=== PATIENT | female | born 1995 | race Hispanic/Latino ===

== ENCOUNTER 2021-10-11 02:07 | Observation (INO) | payer OTHER ==
--- OUTSIDE RECORDS SUMMARY | 2021-10-11 02:10 | XMS REPORT | Continuity of Care Document ---
:1995 Author Organization [facility] t Address [address] [place] [address] Dr[address] Roblero [address] [place] [id number] Care Team Providers Name Role Phone Lucille Wharton Primary Care Physician SUE C Attending Clinician Unavailable Visit, Nurse Attending Clinician Unavailable Julia KELLEY R Attending Clinician Lucille KRISHNAMURTHY Attending Clinician Unavailable Darrian Jarrell Attending Clinician Sue GUTIERREZ C Attending Clinician Payers Payer Name Policy Type Policy Number Effective Date Expiration Date Yvonne HYATT [id number] 2015 HEALTH 00:00:00 Problems Condition Condition Condition Status Onset Resolution Last Treating Co mments Source Name Details Category Date Date Treatment Clinician Date Other Other Disease Active Univers general general 9-17 ity of counseling [place] advice 00 N[place] dical for [facility] contracept contracept jose ramon jose ramon management management Obesity Obesity Disease Active Univers (BMI (BMI 7-26 ity of 30-39.9) 30-39.9) 00:00: [address] Allergies, Adverse Reactions, Alerts Allergy Allergy Status Severity Reaction(s) Onset Inactive Treating Comm ents Source Name Type Date Date Clinician NO KNOWN Drug Active Univers ALLERGIE Class ity of [facility] Social History Social Habit Start Date Stop Date Quantity Comments Source Exposure to 2021-08-19 2021-08-29 Not sure University SARS-CoV-2 00:00:00 10:48:00 [place] [facility]event[facility] Alcohol intake 2021-03-14 2021-03-14 Current drinker Unive rsity of 00:00:00 00:00:00 of alcohol [place] [facility] (finding[facility] Tobacco use and 2020-02-19 2020-02-19 Never used Universit y of exposure 00:00:00 00:00:00 [place] [facility] History SDOH 2020-02-19 2020-02-19 2 University o f Alcohol Frequency 00:00:00 00:00:00 [place] [facility] History SDOH 2020-02-19 2020-02-19 99 University o f Alcohol Std 00:00:00 00:00:00 [place] [facility] Drinks [facility] History SDOH 2020-02-19 2020-02-19 99 University o f Alcohol Binge 00:00:00 00:00:00 [place] [facility] Alcohol Comment 2020-02-19 2020-02-19 stopped for Universi ty of 00:00:00 00:00:00 , [facility] social drinker Branch Sex Ass[birth year] Universit y of 00:00:00 00:00:00 [facility] Branch Smoking Status Start Date Stop Date Source Never smoker [facility] Medications Ordered Filled Start Stop Current Ordering Indication Dosage Frequency Signature Comments Components Source Medication Medication Date Date Medication? Clinician (SIG) Name Name medroxyPROG 2020-03- No [id number] 150mg Univers ESTERone 05-15 ity of (DEPO-PROVE 20:45: 19:44 [place] [facility]) 00 :00 Medical injection Branch 150 mg medroxyPROG 2020-03- No [id number] 150mg 150 mg, Univers ESTERone 05-15 Intramuscu ity of (DEPO-PROVE 20:45: 19:44 [place], [place] [facility]) 00 :00 [id number], Medical injection 3 doses, Branch 150 mg First dose on Sat03/14/21 at 1445, Last dose on Sat08/29/21 at 1445, Routine medroxyPROG 2020-03- No [id number] 150mg Univers ESTERone 05-15 ity of (DEPO-PROVE 20:45: 19:44 [place] [facility]) 00 :00 Medical injection Branch 150 mg medroxyPROG 2020-03- No [id number] 150mg 150 mg, Univers ESTERone -11-21 Intramuscu ity of (DEPO-PROVE 20:45: 19:44 [facility], [place] [facility]) 00 :00 [id number], Medical injection 3 doses, Branch 150 mg First dose on Sat03/14/21 at 1445, Last dose on Sat08/29/21 at 1445, Routine medroxyPROG 2020-03- No [id number] 150mg Univers ESTERone 05-15 ity of (DEPO-PROVE 20:45: 19:44 [place] [facility]) 00 :00 Medical injection Branch 150 mg medroxyPROG 2020-03- No [id number] 150mg 150 mg, Univers ESTERone 05-15 Intramuscu ity of (DEPO-PROVE 20:45: 19:44 [facility], [place] [facility]) 00 :00 [id number], Medical injection 3 doses, Branch 150 mg First dose on Sat03/14/21 at 1445, Last dose on Sat08/29/21 at 1445, Routine medroxyPROG 2020-03- No [id number] 150mg 150 mg, Univers ESTERone 05-15- Intramuscu ity of (DEPO-PROVE 20:45: 15:51 [facility], [facility]) 00 :00 [id number], Medical injection 3 doses, Branch 150 mg First dose on Sat03/14/21 at 1445, Last dose on Sat08/29/21 at 1445, Routine No known 2020-03 No Univers medications 05-15 ity of 14:41: [place] [facility] norethindro 2020- No [id number] 1{tbl} Take 1 Univers ne 0.35 mg 9-17 12-28 tablet by ity of tablet 00:00: 00:00 mouth [place] 00 :00 [facility] norethindro 2020- No [id number] 1{tbl} Take 1 Univers ne 0.35 mg 9-17 12-28 tablet by ity of tablet 00:00: 00:00 mouth [place] 00 :[facility]- No [id number] 1{tbl} Take 1 Univers vitamin 7-28 12-28 tablet by ity of w/FA tablet 00:00[place] daily. [facility] norethindro 2020- No [id number] .35mg Take 1 Univers ne 0.35 mg 7-28 12-28 tablet by ity of tablet 00:00: 00:00 mouth [place] 00 :00 daily. Medical Branch 2020- No [id number] 1{tbl} Take 1 Univers vitamin 7-28 12-28 tablet by ity of w/FA tablet 00:00[place] daily. [facility] norethindro 2020- No [id number] .35mg Take 1 Univers ne 0.35 mg 7-28 12-28 tablet by ity of tablet 00:00: 00:00 mouth [place] 00 :[facility] Immunizations Ordered Filled Immunization Date Status Comments [facility] e Immunization Name Name Varicella 2020-10-12 Completed University of (varivax)(chicken 00:00:00 [place] [facility] pox) [facility] MMR 2020-10-12 Completed University of 00:00:00 [facility] Varicella 2020-10-12 Completed University of (varivax)(chicken 00:00:00 [place] [facility] pox) [facility] MMR 2020-10-12 Completed University of 00:00:00 [facility] Varicella 2020-10-12 Completed University of (varivax)(chicken 00:00:00 [place] [facility] pox) [facility] 2020-10-12 Completed University of 00:00:00 [facility] Varicella 2020-10-12 Completed University of (varivax)(chicken 00:00:00 [place] [facility] pox) [facility] 2020-10-12 Completed University of 00:00:00 [facility] TDAP 2020-07-18 Completed University of 00:00:00 [facility] TDAP 2020-07-18 Completed University of 00:00:00 [facility] TDAP 2020-07-18 Completed University of 00:00:00 [facility] TDAP 2020-07-18 Completed University of 00:00:00 [facility] Vital Signs Vital Name Observation Time Observation Value Comments Source Systolic blood 2021-08-29 15:47:00 114 mm[Hg] Univer sity of pressure [place] [facility] Diastolic blood 2021-08-29 15:47:00 71 mm[Hg] Unive rsity of pressure [place] [facility] Heart rate 2021-08-29 15:47:00 80 /min Universi ty of [place] [facility] Body temperature 2021-08-29 15:47:00 36.72 Nova Univ ersity of [place] [facility] Respiratory rate 2021-08-29 15:47:00 18 /min Univ ersity of [place] [facility] Body height 2021-08-29 15:47:00 157.5 cm Universi ty [facility] [place] [facility] Body weight 2021-08-29 15:47:00 95.8 kg [facility]i ty [facility] [place] [facility] BMI 2021-08-29 15:47:00 38.63 kg/m2 Universi ty of [place] [facility] Systolic blood 2021-06-06 15:57:00 130 mm[Hg] Univer sity of pressure [place] [facility] Diastolic blood 2021-06-06 15:57:00 77 mm[Hg] Unive rsity of pressure [place] [facility] Heart rate 2021-06-06 15:57:00 92 /min Universi ty of [place] [facility] Body temperature 2021-06-06 15:57:00 36.56 [facility] Univ ersity of [place] [facility] Respiratory rate 2021-06-06 15:57:00 18 /min Univ ersity of [place] [facility] Body height 2021-06-06 15:57:00 157.5 cm Universi ty [facility] [place] [facility] Body weight 2021-06-06 15:57:00 99.338 kg [facility]i ty [facility] [place] [facility] BMI 2021-06-06 15:57:00 40.06 kg/m2 [facility]i ty [facility] [place] [facility] Systolic blood 2021-03-14 20:13:00 134 mm[Hg] Univer sity of pressure [place] [facility] Diastolic blood 2021-03-14 20:13:00 84 mm[Hg] Unive rsity of pressure [place] [facility] Heart rate 2021-03-14 20:13:00 92 /min Universi ty [facility] [place] [facility] Body temperature 2021-03-14 20:13:00 36.33 [facility] ersity of [place] [facility] Respiratory rate 2021-03-14 20:13:00 16 /min Univ ersity of [place] [facility] Body height 2021-03-14 20:13:00 157.5 cm General acute hospital Body weight 2021-03-14 20:13:00 100.336 kg [facility] acute hospital BMI 2021-03-14 20:13:00 40.46 kg/m2 General acute hospital Procedures This patient has no known procedures. Encounters Start End Encounter Admission Attending Care Care Encounter Source Date/Time Date/Time Type Type Clinicians Facility Department ID 2021-12-04 2021-12-04 Outpatient R SUE [facility] [id number] Univers 09:30:00 09:30:00 CYNTHIA [id number] itberyl o [facility] [place] 2021-12-04 2021-12-04 Outpatient R SUE [facility] [id number] Univers 09:30:00 09:30:00 CYNTHIA kemp o [facility] [place] 2021-08-29 2021-08-29 Nurse Visit, Pedrito Nurse [facility] [id number] Univers 10:30:00 11:00:24 Visit Thea Krishnamurthy RELATIONSHIP EXECUT[id number] Nikhil as MATERNAL [id number] Med ical & CHILD [address] [place] [address] 2021-08-29 2021-08-29 Outpatient R [facility] [id number] Univers 10:30:00 10:30:00 [id number] ity [facility] 2021-08-29 2021-08-29 Outpatient R JULIA [facility] [id number] Univers 10:30:00 10:30:00 THEA kemp o [facility] [place] 2021-06-06 2021-06-06 Outpatient R JULIA [facility] [id number] Univers 10:30:00 11:07:10 THEA kemp o [facility] [place] 2021-06-06 2021-06-06 Nurse Visit, Pedrito Nurse [facility] [id number] Univers 10:30:00 11:07:10 Visit Thea Krishnamurthy RELATIONSHIP EXECUTIVE [id number] ity [facility] [id number] Nikhil as MATERNAL [id number] [facility] ical & CHILD [address] [place] [address] 2021-03-14 2021-03-14 Office Maribell Vasquez [facility] [id number] [facility] 14:00:00 14:47:53 Visit Cynthia Rogers RELATIONSHIP EXECUTIVE [id number] ity of [facility] [id number] Nikhil as MATERNAL [id number] [facility] & CHILD [address] [place] [address] Results This patient has no known results.
[2021-10-11] MEDS ORDERED: ONDANSETRON 4 MG/2 ML VIAL ONE ×2 (02:56→11:25)
[2021-10-11] MEDS ORDERED: NA CHLORIDE 0.9% 1,000 ML ONE ×2 (02:57→05:18)
[2021-10-11] MEDS ORDERED: PROMETHAZINE INJ 25 MG/ML AMP ONE (03:57)
[2021-10-11] MEDS ORDERED: MORPHINE 4 MG/ML SYR ONE ×2 (04:24→10:15)
[2021-10-11 04:36] LABS: Absolute Lymphocytes (CBC) 4.2 K/uL (0.7-4.9); Hematocrit 40.9 % (36.0-45.0); Lymphocytes % 32.2 % (15.3-44.8); MPV 9.5 fL (7.6-11.3); RBC Red Blood Cell Count 5.59 M/uL (3.86-4.86)
[2021-10-11 04:45] LABS: Albumin 3.9 g/dL (3.4-5.0); Bilirubin Total 0.2 mg/dL (0.2-1.0); Potassium 3.6 mmol/L (3.5-5.1); Protein, Total 8.2 g/dL (6.4-8.2)
[2021-10-11 06:14] LABS: Urine Blood Negative (Negative); Urine Glucose Negative (Negative); Urine Protein Negative (Negative); Urine Specific Gravity >=1.030 (1.005-1.030); Urine pH 5.5 (5.0-7.0)
--- NOTE | 2021-10-11 07:36 | RAD REPORT ---
EXAM DESCRIPTION: US - Abdomen Exam Limited - 10/11/2021 7:26 am CLINICAL HISTORY: ABD PAIN COMPARISON: Abdomen Pelvis W Contrast dated 10/11/2021 FINDINGS: Gallbladder is distended but not dilated. There are numerous variably sized gallstones lay ering along the dependent portion of the gallbladder. Gallbladder wall is thickened and there is a sm all amount of pericholecystic fluid identifiable. Common bile duct is normal range at 5 mm. No duct stone was identifiable. IMPRESSION: Gallbladder findings are consistent with acute cholecystitis. No biliary tree dilatation is seen and no duct stone was identifiable.
[2021-10-11] MEDS ORDERED: PIPERACIL/TAZO 3.375 GM VIAL IV ONE (08:24)
[2021-10-11] MEDS ORDERED: NA CHLORIDE 0.9% 50 ML ONE (08:24)
--- NOTE | 2021-10-11 08:29 | ER ---
Nurse's Notes [facility] Name: Anita Rae Age: 26 yrs Sex: Female : 1995 Arrival Date: 10/11/2021 Time: 02:10 Bed 18 Private MD: Diagnosis: Calculus of gallbladder without cholecystitis;Acute cholecystitis Presentation: 10/11 02:39 Chief complaint: Patient states: My stomach hurts really bad and its making my back kd3 hurt and i cant stop throwing up. It started tonight around 11. This isn't the first time it has happened but usually it goes away. Today it didn't go away. Coronavirus screen: Vaccine status: Patient reports being unvaccinated. Ebola Screen: No symptoms or risks identified at this time. Initial Sepsis Screen: Does the patient meet any 2 criteria? No. Patient's initial sepsis screen is negative. Does the patient have a suspected source of infection? No. Patient's initial sepsis screen is negative. Risk Assessment: Do you want to hurt yourself or someone else? Patient reports no desire to harm self or others. Onset of symptoms was October 11, 2021. 02:39 Method Of Arrival: Ambulatory kd3 02:39 Acuity: BASIM 3 kd3 Triage Assessment: 02:43 General: Appears uncomfortable, ill, Behavior is cooperative. Pain: Complains of pain kd3 in epigastric area. Neuro: Level of Consciousness is awake, alert, obeys commands, Oriented to person, place, time, situation. GI: Pt is actively vomiting clear fluid, undigested food. 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 - Social history:: Smoking status: unknown. Screenin:44 Abuse screen: Denies threats or abuse. Denies injuries from another. Nutritional kd3 screening: No deficits noted. Tuberculosis screening: No symptoms or risk factors identified. Fall Risk None identified. Assessment: 02:52 GI: Bowel sounds present X 4 quads. Abd is soft. kd3 02:53 Reassessment: See Triage. kd3 Vital Signs: 02:39 Pulse 64; Resp 21; Pulse Ox 100% ; Weight 93.89 kg; Height 5 ft. 2 in. (157.48 cm); kd3 Pain 10/10; 02:44 BP 140 / 83; kd3 02:46 Temp 97.5(A); kd3 04:20 BP 136 / 72; Pulse 72; Resp 20; Pulse Ox 100% on R/A; bh1 05:30 BP 124 / 68; Pulse 88; Resp 20; Pulse Ox 100% on R/A; bh1 07:13 BP 126 / 72; Pulse 88; Resp 20; Pulse Ox 100% on R/A; bh1 09:15 BP 125 / 89; Pulse 59; Resp 16 S; Pulse Ox 95% on R/A; Pain 9/10; jg9 02:39 Body Mass Index 37.86 (93.89 kg, 157.48 cm) kd3 ED Course: 02:10 Patient arrived in ED. bp1 02:43 Triage completed. kd3 02:43 Arm band placed on left wrist. kd3 02:52 Gabbie Marquez, IAN is Primary Nurse. kd3 02:52 Patient has correct armband on for positive identification. kd3 02:52 No provider procedures requiring assistance completed. kd3 03:05 Initial lab(s) drawn, by me, sent to lab. Missed attempt(s): 22 gauge in left wm antecubital area. Bleeding controlled, band aid applied, catheter tip intact. 03:07 Inserted saline lock: 20 gauge in right antecubital area, using aseptic technique. kd3 Blood collected. Missed attempt(s): 22 gauge in left antecubital area. 03:52 Michael Santiago MD is Attending Physician. kdr 03:54 Patient taken to an exam room. bh1 04:21 No apparent distress. Appears to be sleeping. Awaiting CT Scan. bh1 05:29 No apparent distress. Resting quietly. Awaiting CT Scan. bh1 06:08 Test, Serum Sent. bh1 06:[address] bh1 06:22 Patient taken to an exam room. bh1 06:27 CT Abd/Pelvis - IV Contrast Only In Process Unspecified. EDMS 07:28 Abdomen Limited US In Process Unspecified. EDMS 07:43 Attending Physician role handed off by Michael Santiago MD denisse 07:43 Lenard Headley MD is Attending Physician. denisse 08:25 Thomas Paniagua MD is Hospitalizing Provider. denisse 09:40 Patient admitted, IV remains in place. jg9 Administered Medications: 03:50 Drug: Zofran (Ondansetron) 4 mg Route: IVP; Site: right antecubital; kd3 03:54 Follow up: Response: No adverse reaction 1 03:50 Drug: NS 0.9% 1000 ml Route: IV; Rate: 1 bolus; Site: right antecubital; kd3 04:14 Follow up: Response: No adverse reaction; IV Status: Completed infusion; IV Intake: bh1 1000ml 03:55 Drug: Phenergan (promethazine) 12.5 mg Route: IVP; Site: left antecubital; kd3 04:13 Follow up: Response: No adverse reaction 1 04:19 Drug: morphine 4 mg Route: IVP; Infused Over: 4 mins; Site: right antecubital; bh1 04:19 Follow up: Response: No adverse reaction 1 05:15 Drug: NS 0.9% 1000 ml Route: IV; Rate: 1 bolus; Site: right antecubital; bh1 06:13 Follow up: IV Status: Completed infusion; IV Intake: 1000ml bh1 09:00 Follow up: IV Status: Completed infusion; IV Intake: 1000ml jg9 08:30 Drug: Zosyn (piperacillin-tazobactam) 3.375 grams Route: IVPB; Infused Over: 60 mins; iw Site: right antecubital; 09:30 Follow up: IV Status: Completed infusion; IV Intake: 100ml jg9 Medication: 02:52 VIS not applicable for this client. kd3 Intake: 04:14 IV: 1000ml; Total: 1000ml. bh1 06:13 IV: 1000ml; Total: 2000ml. bh1 09:00 IV: 1000ml; Total: 3000ml. jg9 09:30 IV: 100ml; Total: 3100ml. jg9 Outcome: 08:28 Decision to Hospitalize by Provider. denisse 09:39 Admitted to OR accompanied by nurse, via wheelchair. jg9 09:39 Condition: stable 09:40 Patient left the ED. jg9 Signatures: Dispatcher [employer] EDLenard Morrison MD MD cha Rittger, Kevin, MD MD kdr Williams, Irene, RN RN iw Lavinia Braxton Wendy wm Doucette, Kyli, RN RN kd3 Alice Yan RN RN jg9 Kellie Caruso RN RN bh1
--- NOTE | 2021-10-11 08:29 | EDPHYS ---
[facility] Name: Anita Rae Age: 26 yrs Sex: Female : 1995 Arrival Date: 10/11/2021 Time: 02:10 Bed 18 Private MD: ED Physician Lenard Headley HPI: 10/11 07:09 This 26 yrs old Female presents to ER via Ambulatory with complaints of kdr Abdominal Pain, Back Pain, Vomiting. 07:10 The patient presents with abdominal pain in the upper abdomen. Onset: The kdr symptoms/episode began/occurred last night. The symptoms do not radiate. Associated signs and symptoms: Pertinent positives: nausea and vomiting. The symptoms are described as achy, constant, crampy. Modifying factors: The symptoms are alleviated by nothing, the symptoms are aggravated by food, movement, touching the area, vomiting. Severity of pain: At its worst the pain was mild moderate just prior to arrival. The patient has experienced similar episodes in the past, multiple times, but today's symptoms are worse. Patient presents to the ED this morning complaining of abdominal pain and vomiting. She states that she has had this problem off and on for some weeks if not a month or more. Today however the pain was more severe and she could not stop vomiting. The vomiting started about 11 PM last evening. She continues to have mild to moderate nausea in the ED at this time. She appears mildly to moderately uncomfortable. 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 - Social history:: Smoking status: unknown. ROS: 07:10 Constitutional: Negative for fever, chills, and weight loss, Eyes: Negative for injury, kdr pain, redness, and discharge, Neck: Negative for injury, pain, and swelling. 07:10 Cardiovascular: Negative for chest pain, palpitations, and edema, Respiratory: Negative for shortness of breath, cough, wheezing, and pleuritic chest pain, Back: Negative for injury and pain, : Negative for injury, bleeding, discharge, and swelling, MS/Extremity: Negative for injury and deformity, Skin: Negative for injury, rash, and discoloration, Neuro: Negative for headache, weakness, numbness, tingling, and seizure activity. Psych: Negative for depression, anxiety, suicide ideation, homicidal ideation, and hallucinations, Allergy/Immunology: Negative for hives, rash, and allergies, Endocrine: Negative for neck swelling, polydipsia, polyuria, polyphagia, and marked weight changes, Hematologic/Lymphatic: Negative for swollen nodes, abnormal bleeding, and unusual bruising. 07:10 Constitutional: Positive for malaise, poor PO intake. 07:10 Abdomen/GI: Positive for abdominal pain, nausea and vomiting, nausea, vomiting, and diarrhea, constipation, abdominal cramps, of the epigastric area, right upper quadrant and left upper quadrant, Negative for black/tarry stool, rectal pain, rectal bleeding, bowel incontinence, flatulence. Exam: 07:10 Constitutional: This is a well developed, well nourished patient who is awake, alert, kdr and in no moderate distress. Head/Face: Normocephalic, atraumatic. Eyes: Pupils equal round and reactive to light, extra-ocular motions intact. Lids and lashes normal. Conjunctiva and sclera are non-icteric and not injected. Cornea within normal limits. Periorbital areas with no swelling, redness, or edema. Neck: Trachea midline, no thyromegaly or masses palpated, and no cervical lymphadenopathy. Supple, full range of motion without nuchal rigidity, or vertebral point tenderness. No Meningismus. Chest/axilla: Normal chest wall appearance and motion. Nontender with no deformity. No lesions are appreciated. Cardiovascular: Regular rate and rhythm with a normal S1 and S2. No gallops, murmurs, or rubs. Normal PMI, no JVD. No pulse deficits. Respiratory: Lungs have equal breath sounds bilaterally, clear to auscultation and percussion. No rales, rhonchi or wheezes noted. No increased work of breathing, no retractions or nasal flaring. Back: No spinal tenderness. No costovertebral tenderness. Full range of motion. Skin: Warm, dry with normal turgor. Normal color with no rashes, no lesions, and no evidence of cellulitis. MS/ Extremity: Pulses equal, no cyanosis. Neurovascular intact. Full, normal range of motion. Neuro: Awake and alert, GCS 15, oriented to person, place, time, and situation. Cranial nerves II-XII grossly intact. Motor strength 5/5 in all extremities. Sensory grossly intact. Cerebellar exam normal. Normal gait. Psych: Awake, alert, with orientation to person, place and time. Behavior, mood, and affect are within normal limits. 07:10 Abdomen/GI: Inspection: obese Bowel sounds: active, diminished, in all quadrants, Palpation: soft, mild abdominal tenderness, in the epigastric area, right upper quadrant and left upper quadrant, rebound tenderness, is not appreciated. Vital Signs: 02:39 Pulse 64; Resp 21; Pulse Ox 100% ; Weight 93.89 kg; Height 5 ft. 2 in. (157.48 cm); kd3 Pain 10/10; 02:44 BP 140 / 83; kd3 02:46 Temp 97.5(A); kd3 04:20 BP 136 / 72; Pulse 72; Resp 20; Pulse Ox 100% on R/A; bh1 05:30 BP 124 / 68; Pulse 88; Resp 20; Pulse Ox 100% on R/A; bh1 07:13 BP 126 / 72; Pulse 88; Resp 20; Pulse Ox 100% on R/A; bh1 09:15 BP 125 / 89; Pulse 59; Resp 16 S; Pulse Ox 95% on R/A; Pain 9/10; jg9 02:39 Body Mass Index 37.86 (93.89 kg, 157.48 cm) kd3 MDM: 07:10 Data reviewed: vital signs, nurses notes, lab test result(s), radiologic studies. kdr Counseling: I had a detailed discussion with the patient and/or guardian regarding: the historical points, exam findings, and any diagnostic results supporting the discharge/admit diagnosis, lab results, radiology results. 07:43 Patient medically screened. denisse 10/11 02:42 Order name: CBC with Diff bb 10/11 02:42 Order name: CMP 10/11 02:42 Order name: Lipase 10/11 05:09 Order name: Test, Serum 10/11 05:57 Order name: CBC with Automated Diff; Complete Time: 07:05 EDCA 10/11 05:57 Order name: Comprehensive Metabolic Panel EDCA 10/11 05:57 Order name: Lipase EDCA 10/11 05:57 Order name: Test Serum, [place]; Complete Time: 07:05 EDMS 10/11 06:15 Order name: Urine Dipstick-Ancillary; Complete Time: 07:05 EDMS 10/11 08:46 Order name: Basic Metabolic Panel EDCA 10/11 08:46 Order name: Basic Metabolic Panel EDCA 10/11 08:46 Order name: CBC with Automated Diff EDMS 10/11 08:46 Order name: CBC with Automated Diff EDMS 10/11 02:42 Order name: IV Saline Lock; Complete Time: 03:06 bb 10/11 02:42 Order name: Labs collected and sent; Complete Time: 03:06 bb 10/11 04:14 Order name: CT Abd/Pelvis - IV Contrast Only kdr 10/11 07:07 Order name: Abdomen Limited US; Complete Time: 07:55 kdr 10/11 08:46 Order name: NPO EDCA 10/11 08:46 Order name: Lipase EDCA 10/11 08:46 Order name: Lipase EDCA 10/11 08:46 Order name: Liver (Hepatic) Function EDCA 10/11 08:46 Order name: Liver (Hepatic) Function EDCA 10/11 08:49 Order name: SARS RAPID bd 10/11 02:42 Order name: Urine Dipstick-Ancillary (obtain specimen); Complete Time: 06:13 bb 10/11 02:42 Order name: Urine Test (obtain specimen); Complete Time: 06:13 bb Administered Medications: 03:50 Drug: Zofran (Ondansetron) 4 mg Route: IVP; Site: right antecubital; kd3 03:54 Follow up: Response: No adverse reaction 1 03:50 Drug: NS 0.9% 1000 ml Route: IV; Rate: 1 bolus; Site: right antecubital; kd3 04:14 Follow up: Response: No adverse reaction; IV Status: Completed infusion; IV Intake: bh1 1000ml 03:55 Drug: Phenergan (promethazine) 12.5 mg Route: IVP; Site: left antecubital; kd3 04:13 Follow up: Response: No adverse reaction 1 04:19 Drug: morphine 4 mg Route: IVP; Infused Over: 4 mins; Site: right antecubital; bh1 04:19 Follow up: Response: No adverse reaction 1 05:15 Drug: NS 0.9% 1000 ml Route: IV; Rate: 1 bolus; Site: right antecubital; 1 06:13 Follow up: IV Status: Completed infusion; IV Intake: 1000ml bh1 09:00 Follow up: IV Status: Completed infusion; IV Intake: 1000ml jg9 08:30 Drug: Zosyn (piperacillin-tazobactam) 3.375 grams Route: IVPB; Infused Over: 60 mins; iw Site: right antecubital; 09:30 Follow up: IV Status: Completed infusion; IV Intake: 100ml jg9 Disposition Summary: 10/11/21 08:28 Hospitalization Ordered Hospitalization Status: Observation denisse Provider: Thomas Paniagua cha Location: Telemetry/MedSurg (observation) denisse Condition: Stable denisse Problem: new denisse Symptoms: have improved denisse Bed/Room Type: Standard [facility] Room Assignment: denisse Diagnosis - Calculus of gallbladder without cholecystitis denisse - Acute cholecystitis denisse Forms: - Medication Reconciliation Form denisse - SBAR form denisse Signatures: Dispatcher [employer] EDLenard Morrison MD MD cha Rittger, Kevin, MD MD kdr Ballard, Brenda RN RN Bety Irwin RN RN iw Doucette, Kyli, RN RN kd3 Kellie Caruso RN RN bhAlice Bergeron RN jg9
[2021-10-11] MEDS ORDERED: MORPHINE 4 MG/ML SYR IV PRN (08:40)
[2021-10-11] MEDS ORDERED: ONDANSETRON 4 MG/2 ML VIAL IV PRN (08:40)
[2021-10-11] MEDS ORDERED: FAMOTIDINE 20 MG/2 ML VIAL IV SCH (09:00)
[2021-10-11] MEDS ORDERED: PIPER TAZO 3.375 GM in NA CHLORIDE 0.9% 100 ML IV SCH (09:00)
[2021-10-11] MEDS ORDERED: ACETAMINOPHEN 325 MG TABLET PO PRN (09:30)
[2021-10-11] MEDS ORDERED: Ringers Lactate 1,000 ML IV ONE ×2 (09:51→11:32)
[2021-10-11] MEDS ORDERED: FENTANYL CITR 100 MCG/2 ML ONE (10:02)
[2021-10-11] MEDS ORDERED: MIDAZOLAM HCL 2 MG/2 ML INJ ONE (10:02)
[2021-10-11] MEDS ORDERED: ROCURONIUM 50 MG/5 ML VIAL IV ONE (10:02)
[2021-10-11] MEDS ORDERED: propofoL 200 MG/20 ML VIAL IV ONE (10:02)
[2021-10-11] MEDS ORDERED: LIDOCAINE 1% MPF 5 ML VIAL ONE (10:02)
[2021-10-11] MEDS ORDERED: ACETAMINOPHEN 500 MG TAB ONE (10:06)
[2021-10-11] MEDS ORDERED: CELECOXIB 100 MG CAPSULE ONE (10:06)
--- NOTE | 2021-10-11 10:53 | RAD REPORT ---
EXAM DESCRIPTION: CT - Abdomen Pelvis W Contrast - 10/11/2021 6:52 am CLINICAL HISTORY: The patient is 26 years old and is Female; Abdominal pain, acute, nonlocalized TECHNIQUE: Axial computed tomography images of the abdomen and pelvis with intravenous contrast. S agittal and coronal reformatted images were created and reviewed. This CT exam was performed using one or more of the following dose reduction techniques: automated exposure control, adjustment of t he mA and/or kV according to patient size, and/or use of iterative reconstruction technique. COMPARISON: No relevant prior studies available. FINDINGS: Lung bases: Unremarkable. No mass. No consolidation. ABDOMEN: Liver: Mild periportal edema. Gallbladder and bile ducts: Distended gallbladder with wall thickening and/or pericholecystic fat stranding suggesting cholecystitis. No calcified stones visualized. No ductal dilation. Pancreas: No findings to suggest acute pancreatitis. No mass visualized. No ductal dilation. Spleen: Unremarkable. No splenomegaly. Adrenals: Unremarkable. No mass. Kidneys and ureters: Unremarkable. No solid mass. No hydronephrosis. Stomach and bowel: No bowel dilatation or obstruction. No bowel wall thickening. PELVIS: Appendix: The visualized appendix is normal. No pericecal inflammation to suggest acute appendici tis. Bladder: Bladder is empty. No stones. Reproductive: Unremarkable as visualized. ABDOMEN and PELVIS: Intraperitoneal space: Unremarkable. No free air. No significant fluid collection. Bones/joints: No acute fracture visualized. No dislocation. Soft tissues: Unremarkable. Vasculature: Unremarkable. No abdominal aortic aneurysm. Lymph nodes: No pathologically enlarged lymph nodes. IMPRESSION: Distended gallbladder with wall thickening and/or pericholecystic fat stranding suggesti ng cholecystitis. No calcified stones visualized. Ultrasound follow-up recommended. Electronically signed by: Kae Ferguson MD 10/11/2021 6:46 AM CDT Due to temporary technical issues with the PACS/Fluency reporting system, reports are being signed by the in house radiologists without review as a courtesy to insure prompt reporting. The interpreting radiologist is fully responsible for the content of the report.
[2021-10-11] MEDS ORDERED: dexAMETHasone 4 MG/ML VIAL ONE (11:25)
[2021-10-11] MEDS ORDERED: KETOROLAC 30 MG/ML INJ ONE (11:29)
[2021-10-11 11:30] LABS: SARS-CoV-2 Antigen Rapid Res Negative (Negative)
--- NOTE | 2021-10-11 12:10 | P.BOP ---
Preoperative diagnosis: Acute cholecystitis, sympt. 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
[2021-10-11] MEDS ORDERED: NEOSTIGMINE 1 MG/ML -10 ML VIAL ONE (12:11)
[2021-10-11] MEDS ORDERED: GLYCOPYRROLATE 0.2 MG/ML SYR ONE (12:11)
[2021-10-11] MEDS ORDERED: HYDROCODONE/APAP 5/325 MG TAB PO PRN (12:14)
[2021-10-11 13:47] VITALS: O2SAT 96
--- NOTE | 2021-10-11 15:09 | OP ---
Date of Procedure: 10/11/2021 Surgeon: Thomas Paniagua MD Long Line Teamster: Meryl Morfin. Preoperative Diagnoses: Acute cholecystitis, symptomatic cholelithiasis. Postoperative Diagnoses: Acute cholecystitis, symptomatic cholelithiasis. Procedure: Laparoscopic cholecystectomy. Estimated Blood Loss: Less than 10 cc. Specimen: Gallbladder. Findings: Inflamed gallbladder with pericholecystic fluid. Anesthesia: General plus local. Complications: None. Indication: This is the case of a female, who comes to us with acute abdominal pain, Buitrago sign pos itive, intractable pain, found out to have acute cholecystitis, symptomatic cholelithiasis. Fully ex plained the option of laparoscopic possible open cholecystectomy, which she wants to use with benefit s, alternatives, and risks including, but not limited to infection, bleeding, damage to adjacent stru ctures, anesthesia complication, bile leak, pancreatitis, LA, and even . She also understands t his also may have a chance of choledocholithiasis and pancreatitis. She signed a consent. Procedure In Detail: The patient was brought to the operating room, placed in supine position. Anes thesia was done without complication. Abdominal area was prepped and draped in the usual sterile fas hion. Marcaine 0.5% was injected for local anesthetic followed by sharp incision of the skin in the infraumbilical region. The incision was carried down to fascia, which was opened under direct vision . Peritoneum was encountered, opened under direct vision. Vicryl #1 placed inside the fascia. [place]ady on trocar was carefully introduced. Pneumoperitoneum was obtained. I placed 3 more trocars, 5 mm ea ch one of them in the right upper quadrant under direct visualization. This allowed me to visualize the area of the gallbladder. The gallbladder was too distended and inflamed to be done without defla tion. So, we introduced Endo needle under direct visualization and decompressed the gallbladder. Ne edle was removed under direct visualization. A grasper was placed in that area, another grasper in t he infundibulum, retracting the gallbladder in the inferolateral fashion, exposing the triangle of Ca lot, and obtaining critical view. Cystic duct and cystic artery were clearly isolated, freed circumf erentially and a connection between those and the gallbladder were clearly identified. I proceeded t o ligate those by using 3 clips proximal, 1 clip distal, ligation in middle and the cystic artery was ligated with similar technique. No bile leak. No bleeding. The gallbladder was removed from liver using Bovie cauterizer and removed from abdominal cavity using an EndoCatch through the umbilical in cision. The area was inspected once again. No bile leak. No bleeding. At that moment, I proceeded to remove the trocars under direct vision. Deflated the pneumoperitoneum. Closed the fascia with # 1 Vicryl. Irrigated subcutaneous tissue, closed that with 3-0 chromic and skin with day. Sponge count, instrument counts correct. The patient tolerated the procedure well. I have to mention that the gallbladder was so inflamed and full of stones that we have to extend the incision in the umbili kate region and we have to closed that with further Vicryl #1. The patient tolerated the procedure we ll. The patient was sent to recovery in stable condition. Sponge count, instrument counts correct. OTONIEL/RAYA Voice ID: [id number] Report ID: [id number]
[2021-10-11] MEDS: D5 0.45 NS 1,000 ML IV SCH (17:44)
[2021-10-11] MEDS ORDERED: NA CHLORIDE 0.9% 0 ML ONE (17:58)
[2021-10-11 18:27] VITALS: BMI 37.8
--- NOTE | 2021-10-11 21:24 | HP ---
Date of Admission: 10/11/2021 History Of Present Illness: This is the case of a 26-year-old patient, who started to develop abdomi nal pain since last night, 11 o'clock at night, epigastric right upper quadrant area, radiating to th e back. She remembered an episode a few weeks ago and a month ago, but normally this episode goes aw ay on its own. For dinner yesterday, she had some meat. She denies any dysuria, hematuria, hematoch ezia, melena. Denies any recent traveling out of the country. Denies any family member sick at home . Past Medical History: None. Allergies: NONE. Surgeries: . Medications: None. Social History: She does not smoke. She does not drink alcohol. Review of Systems: See H and P. Nausea, vomiting, abdominal pain. Ten points otherwise unremarkable. Physical Examination: General: The patient is awake, alert. HEENT: Pupils are equal and reactive. Anicteric. Neck: Supple. Chest: Clear. Heart: S1, S2. Abdomen: Epigastric right upper quadrant pain and tenderness in the right upper quadrant tenderness with Buitrago sign positive. Breasts: Deferred. Pelvic: Deferred. Rectal: Deferred. Extremities: Good capillary refill. Neurologic: Cranial nerves 2 through 12 grossly within normal limits. Laboratory Data: Blood work reviewed. Ultrasound shows cholelithiasis with gallbladder wall thicken ing. Assessment: This is a -cmhi-hjs patient with above diagnosis. Fully explained the benefit s, alternatives, and risks laparoscopic possible open cholecystectomy, which include, but not limited to infection, bleeding, damage to adjacent structures, anesthesia complication, choledocholithiasis, bile leak, pancreatitis, PA, and even . She also understands this may not relieve any symptoms . She might need more than one surgical intervention. She preferred to have a cholecystectomy done during this admission. The patient was immediately booked in OR. OTONIEL/RAYA Voice ID: [id number]
[2021-10-12] MEDS: D5 0.45 NS 1,000 ML IV SCH (01:37)
[2021-10-12] MEDS: PIPER TAZO 3.375 GM in NA CHLORIDE 0.9% 100 ML IV SCH ×2 (01:56→08:51)
[2021-10-12 06:06] LABS: Hematocrit 36.6 % (36.0-45.0); Lymphocytes % 23.7 % (15.3-44.8); MCV 73.1 fL (80-100); MPV 9.5 fL (7.6-11.3)
[2021-10-12 06:26] LABS: Potassium 3.5 mmol/L (3.5-5.1)
--- NOTE | 2021-10-12 11:09 | P.DS ---
Admission Date: 10/11/21 Discharge Date: 10/12/21 Disposition: ROUTINE DISCHARGE Discharge Condition: GOOD Hospital Course: unremarkable Vital Signs/Physical Exam: Temp Pulse Resp BP Pulse Ox 98.3 F 81 18 122/56 L 99 10/12/21 08:00 10/12/21 08:00 10/12/21 08:00 10/12/21 08:00 10/12/21 08:00 General: Alert, In no apparent distress, Oriented x3, Cooperative HEENT: Atraumatic, PERRLA Neck: Supple Respiratory: Normal air movement Cardiovascular: No edema, Normal pulses Musculoskeletal: No erythema, No tenderness, No warmth Integumentary: No rashes, No breakdown Neurological: Normal speech Laboratory Data at Discharge: WBC 12.8 K/uL (4.3-10.9) H 10/12/21 05:15 Hgb 11.6 g/dL (12.0-15.0) L 10/12/21 05:15 Hct 36.6 % (36.0-45.0) 10/12/21 05:15 Plt Count 277 K/uL (152-406) D 10/12/21 05:15 Sodium 140 mmol/L (136-145) 10/12/21 05:15 Potassium 3.5 mmol/L (3.5-5.1) 10/12/21 05:15 BUN 4 mg/dL (7-18) L 10/12/21 05:15 Creatinine 0.63 mg/dL (0.55-1.3) 10/12/21 05:15 Glucose 108 mg/dL (74-106) H 10/12/21 05:15 Total Bilirubin 0.2 mg/dL (0.2-1.0) 10/11/21 02:55 AST 18 U/L (15-37) 10/11/21 02:55 ALT 21 U/L (12-78) 10/11/21 02:55 Alkaline Phosphatase 106 U/L (45-117) 10/11/21 02:55 Lipase 77 U/L (73-393) 10/11/21 02:55 Home Medications: NK [No Home Meds] 10/11/21 Physician Discharge Instructions: PROBLEM: Status-Post Laparoscopic Cholecystectomy 10/11/2021 GOAL: Clear understanding of disease process INSTRUCTIONS: Diet: Regular Activity: As Tolerated DME DME: No Date Ordered: Name of Company: [employer] Services Needed: [employer] of [employer]: Date or Referral: IMMUNIZATION Influenza Vaccine Indicated: No Influenza Vaccine Given: Date Given: Pneumonia Vaccine Indicated: No Pneumonia Vaccine Given: Date Given: Diet: Regular Activity: No lifting more than 10 lbs Followup: Thomas Paniagua MD [ACTIVE - CAN ADMIT] - NONE,NONE [Primary Care Provider] -
[2021-10-12 11:51] VITALS: BP 117/65; TEMP 97.7
== END 2021-10-12 11:50 | disposition home or self-care (01) ==
LOC: ER 02:07 → ERHOLD 08:37 → 2ND-WC 12:41
PROVIDERS: ADMIT Surgery; ATTEND Surgery
PROC: 0FT44ZZ Resection of Gallbladder, Percutaneous Endoscopic Approach (ICD-10-PCS; principal; 2021-10-11 12:00)
DX: K80.12 Calculus of gallbladder with acute and chronic cholecystitis without obstruction (principal); Z20.822 Contact with and (suspected) exposure to COVID-19
CPT/HCPCS: 85025 ×2; 80048; 36415 ×2; 84703; 88304; 81003; 83690; 80053; 74177; 76705; 94010; 99285; 87811; 47562; Q9967; J2704; J1100; J2710; J2550; J2543 ×3; J2250; J3010; G0378 ×4; J7799 ×2; J7120 ×2; J7030 ×2; J2405 ×2; J3490